=== PATIENT | female | born 1950 | race Caucasian/White ===

== ENCOUNTER 2016-09-03 22:04 | Emergency (ER) | payer MEDICARE, BC ==
--- NOTE | ~2016-09-03 | CR127 ---
[facility] A Service of [facility] & [facility] RADIOLOGY TEXT RESULTS PATIENT: LUIS JOHNSON LOCATION: SED : 48 UNIT #: [id number] AGE: [address]: Cruzito Turcios SEX: F ORDER DR: [id number] [place] [id number] E MR#: [id number] Acc #: [id number] NAME: LUIS JOHNSON : 1950 SEX: F STUDY DATE/TIME: 09/03/2016 22:49 UNIT: SED ROOM: STUDY DESCRIPTION: CR Foot Complete Min 3 View Rt Attending Physician: Cruzito Turcios P.A.-C. Ordering Physician: Cruzito Turcios P.A.-C. Primary Care Physician: Clemente Chow D.O. MEDICAL IMAGING REPORT This report is preliminary unless electronic signature is present. EXAM right foot 09/03 22:49. INDICATIONS Pain and swelling that started 1 week ago after tripping over her dog. FINDINGS Three views of the right foot were obtained. 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 There are posterior and plantar calcaneal spurs. No fracture or malalignment is seen. 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 No acute fracture. Dictated by... Clemente Byrd Jr., M.D. THIS IS AN ELECTRONICALLY VERIFIED REPORT Clemente yBrd Jr., M.D. at 09/04/2016 9:21 PM ADONAY/prateek TD: 09/04/2016 11:47 JOB #: [id number] MEDICAL IMAGING REPORT Page 1 of 1
[~2016-09-03 22:04] MED LIST: ZESTRIL40 MG PO
[2016-09-03] MEDS ORDERED: DITROPAN XL15 MG (22:19)
[2016-09-03] MEDS ORDERED: SERTRALINE HCL50 MG (22:19)
[2016-09-03] MEDS ORDERED: ALOGLIPTIN12.5 MG (22:19)
[2016-09-03] MEDS ORDERED: PIOGLITAZONE30 MG ×2 (22:19→22:21)
[2016-09-03] MEDS ORDERED: VESICARE5 MG PO (22:19)
[2016-09-03] MEDS ORDERED: TRADJENTA5 MG (22:20)
[2016-09-03] MEDS ORDERED: GABAPENTIN600 MG (22:20)
[2016-09-03] MEDS ORDERED: PRAVASTATIN SOD40 MG (22:20)
[2016-09-03] MEDS ORDERED: TRAMADOL HCL50 M2 PO (22:20)
[2016-09-03] MEDS ORDERED: ASPIRIN81 M2 (22:20)
[2016-09-03] MEDS ORDERED: JANUVIA (22:21)
== END 2016-09-04 00:10 | disposition home or self-care (01) ==
LOC: SED 22:04
DX: S90.31XA Contusion of right foot, initial encounter (principal); E78.5 Hyperlipidemia, unspecified; I10 Essential (primary) hypertension; E11.9 Type 2 diabetes mellitus without complications; Z79.899 Other long term (current) drug therapy; Z88.0 Allergy status to penicillin; Z88.2 Allergy status to sulfonamides; Z88.1 Allergy status to other antibiotic agents; Z91.041 Radiographic dye allergy status; W01.0XXA Fall on same level from slipping, tripping and stumbling without subsequent striking against object, initial encounter; Y92.009 Unspecified place in unspecified non-institutional (private) residence as the place of occurrence of the external cause
CPT/HCPCS: 73630; 99283